=== PATIENT | female | born 1965 | race Caucasian/White ===

== ENCOUNTER → 2018-10-11 08:44 | Outpatient (CLI) | payer MEDICARE | END | disposition home or self-care (01) | LOC: D.NM 08:15 | PROVIDERS: ATTEND Orthopaedic Surgery | DX: M25.561 Pain in right knee (principal) ==

== ENCOUNTER → 2018-10-31 12:03 | Outpatient (CLI) | payer MEDICARE ==
[2018-10-31 18:42] LABS: BASOPHILS 0.9 % (0-2); EOSINOPHILS 0.9 % (0-7); HEMATOCRIT 36.6 % (36.0-48.0); HEMOGLOBIN 12.4 g/dL (12-16); IMMATURE GRANULOCYTES 0.3 % (0-5); LYMPHOCYTES 39.3 % (15-50); MCH 32.8 pg (26.0-34.0); MCHC 33.9 g/dL (31.0-37.0); MCV 96.8 fL (80.0-100.0); MEAN PLATELET VOLUME 8.9 fL (7.4-10.4); MONOCYTES 4.7 % (2-11); NEUTROPHILS 53.9 % (40-80); PLATELET COUNT 320 10x3/uL (130-400); RBC 3.78 10x6/uL (4.00-5.40); RDW 12.7 % (11.5-14.5); WBC 6.8 10x3/uL (4.8-10.8)
[2018-10-31 19:42] LABS: PROTEIN - BODY FLUID 11.2 G/DL
[2018-10-31 19:51] LABS: CRYSTAL IDENTIFICATION NO CRYSTALS SEEN (NONE SEEN)
[2018-10-31 19:53] LABS: ERYTHROCYTE SEDIMENTATION RATE 10 mm/hr (0-30)
== END | disposition home or self-care (01) ==
LOC: D.LABREF 12:03
PROVIDERS: ATTEND Orthopaedic Surgery
DX: M25.561 Pain in right knee (principal)

== ENCOUNTER → 2018-11-07 12:41 | Outpatient (CLI) | payer MEDICARE | END | disposition home or self-care (01) | LOC: D.LABREF 12:41 | PROVIDERS: ATTEND Orthopaedic Surgery | DX: M17.11 Unilateral primary osteoarthritis, right knee (principal); Z11.8 Encounter for screening for other infectious and parasitic diseases ==

== ENCOUNTER 2018-12-02 14:55 | Inpatient (IN) | payer MEDICARE ==
[~2018-12-02] VITALS: Ht 157.5 cm; Wt 85.5 kg
[2018-12-06] MEDS ORDERED: OMEPRAZOLE20 M1 PO (13:52)
[2018-12-06] MEDS ORDERED: MIRAPEX1 MG PO (13:53)
[2018-12-06] MEDS ORDERED: BACLOFEN20 M1 PO (13:54)
[2018-12-06] MEDS ORDERED: AMITRIPTYLINE100 MG PO (13:54)
[2018-12-06] MEDS ORDERED: LEXAPRO20 MG PO (13:54)
[2018-12-06] MEDS ORDERED: REQUIP1 MG PO (14:20)
[2018-12-06] MEDS ORDERED: HYDROCODON-ACE1 EA10 PO (14:21)
[2018-12-06] MEDS ORDERED: LISINOPRIL20 MG PO (14:21)
[2018-12-06] MEDS ORDERED: GABAPENTIN100 MG PO (14:22)
[2018-12-06] MEDS ORDERED: HYDROXYZINE HCL50 MG PO (14:40)
[2018-12-07 10:55] LABS: APPEARANCE CLEAR (CLEAR); BILIRUBIN NEGATIVE (NEGATIVE); COLOR YELLOW (YELLOW); GLUCOSE NEGATIVE (NEGATIVE); KETONE NEGATIVE (NEGATIVE); NITRITE NEGATIVE (NEGATIVE); PROTEIN NEGATIVE (NEGATIVE); SPECIFIC GRAVITY 1.015 (1.005-1.020); UROBILINOGEN NORMAL (NORMAL)
[2018-12-07 11:15] LABS: BASOPHILS 0.6 % (0-2); EOSINOPHILS 1.4 % (0-7); HEMATOCRIT 37.6 % (36.0-48.0); HEMOGLOBIN 12.9 g/dL (12-16); MCH 32.7 pg (26.0-34.0); MCHC 34.3 g/dL (31.0-37.0); MCV 95.2 fL (80.0-100.0); MEAN PLATELET VOLUME 8.1 fL (7.4-10.4); MONOCYTES 5.5 % (2-11); NEUTROPHILS 49.5 % (40-80); PLATELET COUNT 298 10x3/uL (130-400); RBC 3.95 10x6/uL (4.00-5.40); RDW 12.6 % (11.5-14.5); WBC 6.3 10x3/uL (4.8-10.8)
[2018-12-07 11:38] LABS: APTT 34.2 SECONDS (22.8-39.4); INR 0.96 (0.85-1.17); PROTIME 12.3 SECONDS (11.6-15.0)
[2018-12-07 11:40] LABS: CALC OSMOLALITY 283 mosm/kg (275-300); CALCIUM 8.9 mg/dL (8.5-10.1); CARBON DIOXIDE 30.3 mmol/L (21.0-32.0); CHLORIDE - SERUM 104 mmol/L (98-107); CREATININE - SERUM 0.6 mg/dL (0.6-1.3); GLUCOSE 77 mg/dL (74-106); POTASSIUM - SERUM 4.6 mmol/L (3.5-5.1); SODIUM 142 mmol/L (136-145); UREA NITROGEN 18 mg/dL (7-18); eGFR NON AFRICAN AMERICAN > 90 mL/min (90-120)
[2018-12-13] MEDS ORDERED: ZYRTEC10 MG PO (11:26)
[2018-12-13 11:28] VITALS: BP 139/88; BMI 33.9
[2018-12-13 19:22] VITALS: BP 113/75
[2018-12-13] MEDS ORDERED: NEURONTIN 300300 MG PO (23:10)
[2018-12-13 23:20] VITALS: BP 113/75; Ht 157.5 cm; Wt 85.5 kg
[2018-12-14] VITALS: BP 116/75
[2018-12-14 04:00] VITALS: BP 91/62
[2018-12-14 06:04] LABS: HEMATOCRIT 29.8 % (36.0-48.0); MCH 32.3 pg (26.0-34.0); MCHC 33.6 g/dL (31.0-37.0); MCV 96.1 fL (80.0-100.0); MEAN PLATELET VOLUME 8.2 fL (7.4-10.4); RBC 3.1 10x6/uL (4.00-5.40); RDW 12.7 % (11.5-14.5); WBC 6.8 10x3/uL (4.8-10.8)
--- NOTE | 2018-12-14 06:58 | OP ---
PATIENT NAME: ROMEL MCCURDY MEDICAL RECORD: [id number] :63 LOCATION:[id number] ADMISSION DATE:12/13/18 SURGEON: KIRILL LEDESMA DO DATE OF OPERATION: 12/13/2018 PROCEDURE PERFORMED: Right revision total knee arthroplasty. PREOPERATIVE DIAGNOSIS: Loosening of total knee arthroplasty. POSTOPERATIVE DIAGNOSIS: Loosening of total knee arthroplasty. INDICATIONS: Ms. Mccurdy is a 53-year-old female who had a total knee, put in a few years ago. She said it did not feel quite right from the beginning. She said would have pain when she first stood up and then would settle in and she will feel better. She was worked up. She had a bone scan, which demonstrated loosening versus infection. I aspirated her knee as well as freddie an ESR, CRP, white blood cell count. Those were all normal. The cultures did not grow any bacteria from the knee aspirate and white blood count was not more than 1100. The patient was informed that we could revise this. She would be at increased risk for infection due to being a revision, need for further surgery, fracture, blood clots, and even and implant failure. She was okay with that risk and signed the consent for the procedure. SURGEON: Kirill Ledesma DO DESCRIPTION OF PROCEDURE: The patient was given a block by anesthesia in the preoperative area, taken to the operative suite, laid in supine position, given 2 grams Ancef and 80 mg gentamicin preoperatively. The right lower extremity was prepped and draped in sterile fashion. A timeout was performed, was arranged correct side, site, patient and procedure. The incision was then marked out and covered with Ioban and the Esmarch was used to exsanguinate the right lower extremity, tourniquet was inflated 315 mmHg, was up for 100 minutes. Once the tourniquet was inflated, incision began and careful dissection was made down to the capsule. A fresh 10 blade was used to do a medial parapatellar approach through the capsule and some of the synovium was removed at that time due to thickening. Once the knee was exposed, the poly was popped out and went over the femur, it came off fairly easily with just loosening up a little with osteotomes as it was likely loose once the femur came off. Tibia exposure was done and the same procedure with osteotomes loosened up around the edges and then the tibia came out. The cement was then removed off the tibia, as there is not much on the prosthetic, but mostly on the bone. This was removed and then the tibia was prepared and cut through an intramedullary guide. Once the tibia had been cut, distal femur was first reaming up to a 12 on the femur to 120 and then the distal femur cut was freshened up. Once the distal femur was cut, we trialled a 57/5 with 5 mm augments on the distal femur. This fit very well and then was fitted in the tibia. We went up with the tibial tray to 18 poly having it fit well and ended up doing a 5-mm augments on the tibia to the final implant. Once we were satisfied with that, the tibia was prepared again with a 63 and was satisfied with rotation; also the tibia was drilled and cut and punched for the cruciate stem. Any cement that was left was removed at that time, then the implants were assembled with 5 mm augments on the tibia and the distal femur. Cement was placed on them in the tibia and the femur and then the prosthesis were impacted into place, first the tibia. All excess cement was removed. Then, the femur and excess cement was removed from that and then a 12 poly was put in between and brought to extension. The tourniquet was let down OPERATIVE REPORT [id number] ROMEL MCCURDY at that time. The patient did receive a gram of TXA prior to the incision and at that time, the tourniquet was let down. Any bleeding was coagulated at that time with the Aquamantys, and once the cement dried, we trialled the 12 seemed to fit very well. We did end up doing a 12 constrained PS tibia. The knee was then irrigated with Bactisure and then irrigated with 1.5 liters of normal saline after that. Then, Surgicel powder and vancomycin and tobramycin powder were placed in the knee and the gutters and the knee was flexed up. She is very stable in flexion and extension with the prosthesis in and the locking mechanism putting on the tibial tray and the tibial poly. Once that was performed, the capsule was closed with #2 Ethibond in a kemjlz-mf-gpanx fashion and the capsule was irrigated and the skin was closed with 2-0 Vicryl in an inverted interrupted fashion. ZipLine was placed on the knee. The patient was then dressed with Adaptic, 4 x 4s, ABD, Webril, and Rashard wrap and a GALEN stocking placed up to the knee. She was awakened and taken to recovery in stable condition. Blood loss was approximately 200 mL. COMPLICATIONS: None. TRANSINT:[id number] Voice Confirmation ID: [id number] DOCUMENT ID: [id number] KIRILL LEDESMA DO at 0658 CC: [id number] DICTATION DATE: 12/13/18 180 OPTICIAN: 12/13/18 2105 ADM IN [facility] [address] [id number]
[2018-12-14 09:00] VITALS: BP 98/57
--- NOTE | 2018-12-14 10:10 | NUR ---
MORNING ASSESSMENT COMPELTE. SEE ASSESSMENT FLOWSHEET FOR FURTHER DETAILS. PT LYING IN BED AAO X4 TO PERSON, PLACE, TIME, AND SITUATION. DENEIS NEEDS AT THSI TIME.C L IN REACH. SIDE RAILS UP X3 FOR PT SAEFTY. BED IN LOWEST POSITION.
[2018-12-14 11:22] LABS: ALKALINE PHOSPHATASE 85 U/L (46-116); ALT (SGPT) 32 U/L (10-68); CALC OSMOLALITY 280 mosm/kg (275-300); CALCIUM 7.8 mg/dL (8.5-10.1); CARBON DIOXIDE 29.9 mmol/L (21.0-32.0); CHLORIDE - SERUM 107 mmol/L (98-107); CREATININE - SERUM 0.6 mg/dL (0.6-1.3); GLUCOSE 81 mg/dL (74-106); POTASSIUM - SERUM 4.4 mmol/L (3.5-5.1); PROTEIN - SERUM 5.3 g/dL (6.4-8.2); SODIUM 141 mmol/L (136-145); UREA NITROGEN 16 mg/dL (7-18); eGFR NON AFRICAN AMERICAN > 90 mL/min (90-120)
[2018-12-14 13:14] VITALS: BP 107/58
[2018-12-14 16:46] VITALS: BP 111/62
[2018-12-14 20:00] VITALS: BP 125/63
--- NOTE | 2018-12-14 20:00 | NUR ---
ALERT RESTING IN BED CPM IN USE, BILLIE WRAP DRESSING INTACT TO RIGHT KNEE, DENIES PAIN AT THIS TIME, CALL LIGHT IN REACH
[2018-12-15] VITALS: BP 133/79
[2018-12-15 04:00] VITALS: BP 152/79
[2018-12-15] MEDS ORDERED: HYDROXYZINE HCL50 MG PO (06:53)
[2018-12-15] MEDS ORDERED: ELIQUIS2.5 MG PO (06:53)
[2018-12-15] MEDS ORDERED: OXYCODONE HCL5 M1 PO (06:54)
[2018-12-15] MEDS ORDERED: CIPRO500 MG PO (06:55)
[2018-12-15 07:04] LABS: BASOPHILS 0.1 % (0-2); EOSINOPHILS 1.2 % (0-7); HEMATOCRIT 30.1 % (36.0-48.0); HEMOGLOBIN 10.4 g/dL (12-16); IMMATURE GRANULOCYTES 0.2 % (0-5); MCH 32.6 pg (26.0-34.0); MCHC 34.6 g/dL (31.0-37.0); MCV 94.4 fL (80.0-100.0); MONOCYTES 6.9 % (2-11); NEUTROPHILS 73.6 % (40-80); PLATELET COUNT 204 10x3/uL (130-400); RBC 3.19 10x6/uL (4.00-5.40); RDW 12.2 % (11.5-14.5); WBC 9.2 10x3/uL (4.8-10.8)
[2018-12-15 07:22] LABS: ALBUMIN 2.9 g/dL (3.4-5.0); ALKALINE PHOSPHATASE 82 U/L (46-116); ALT (SGPT) 24 U/L (10-68); BILIRUBIN - TOTAL 0.64 mg/dL (0.2-1.3); CALC OSMOLALITY 267 mosm/kg (275-300); CALCIUM 8.1 mg/dL (8.5-10.1); CARBON DIOXIDE 23.1 mmol/L (21.0-32.0); CHLORIDE - SERUM 100 mmol/L (98-107); CREATININE - SERUM 0.5 mg/dL (0.6-1.3); GLUCOSE 94 mg/dL (74-106); POTASSIUM - SERUM 3.6 mmol/L (3.5-5.1); PROTEIN - SERUM 6.3 g/dL (6.4-8.2); SODIUM 135 mmol/L (136-145); UREA NITROGEN 8 mg/dL (7-18); eGFR NON AFRICAN AMERICAN > 90 mL/min (90-120)
--- NOTE | 2018-12-15 08:44 | NUR ---
ALERT AND ORIENTED X 3. LUNGS CLEAR BILATERALLY IN ALL WOOD. HEART SOUNDS S1 AND S2 HEARD IN ALL WOOD. BOWEL SOUNDS ACTIVE X 4. PRN PAIN MEDICATION GIVEN FOR PAIN 03/25. DENIES FURTHER NEEDS. SKIN INTACT WITHOUT REDNESS. WILL CONTINUE TO MONITOR.
[2018-12-15 09:20] VITALS: BP 154/76
--- NOTE | 2018-12-15 10:11 | NUR ---
DRSG CHANGED TO RIGHT KNEE PER MD ORDER. INCISION C/D/I WITHOUT REDNESS. 4 EXTRA DRESSINGS AND EXTRA BILLIE WRAP PROVIDED TO PATIENT PER MD ORDER.
[2018-12-15 11:00] VITALS: BP 122/54
--- NOTE | 2018-12-15 11:05 | NUR ---
PATIENT WITH FEVER 101. N/O DR LEDESMA TO GIVE TYLENOL AND POSTPONE DISCHARGE.
--- NOTE | 2018-12-15 11:12 | NUR ---
Patient with 101.1 temp at 0920, Dr Carmen made aware and discharge cancelled.
--- NOTE | 2018-12-15 11:20 | MORECARE ---
CASE MANAGEMENT DISCHARGE SUMMARY PATIENT: ROMEL MCCURDY UNIT: [id number] ADM DATE: 12/13/18 AGE: 53 : 63 SEX: F ROOM/BED: D.2210 AUTHOR: JANICE BROWN PHYSICIAN: REFERRING PHYSICIAN: KIRILL LEDESMA DO DATE OF SERVICE: 12/15/18 Discharge Plan Patient Name: ROMEL MCCURDY Facility: [facility]:[place] : 1965 Planned Disposition: Home or Self Care Anticipated Discharge Date: Discharge Date: Expected LOS: Initial Reviewer: [email or web address] Initial Review Date: 12/13/2018 Generated: 12/15/18 12:20 pm DCPIA - Discharge Planning Initial Assessment Updated by [email or web address]: Maria Antonia Sumner on 12/15/18 11:18 am * Is the patient Alert and Oriented? Yes * How many steps to enter\exit or inside your home? flight * PCP [place] ([facility]) * [facility] * Preadmission Environment Home with Family * ADLs Independent * Equipment Bedside Commode Rolling Walker * Other Equipment CPM Ice Machine * List name and contact numbers for known caregivers / representatives who currently or will assist patient after discharge: Kirill Mccurdy () [phone] * Verbal permission to speak to the caregivers and representatives has been obtained from the patient. N/A * Community resources currently utilized None * Additional services required to return to the preadmission environment? Yes * Can the patient safely return to the preadmission environment? Yes * Has this patient been hospitalized within the prior 30 days at any hospital? No External Providers External Provider: Kenn PT Next Contact Date: Service Request Date: Service Type: Resolution: Reviewer: Comments: Patient Name: ROMEL MCCURDY Page [id number] at 1120 All edits/amendments must be made on the electronic document DICTATION DATE: 12/15/18 1120 MANAGER WEB: TEE 12/15/18 1120 RPT#: [id number] DC DATE: STATUS: ADM IN [facility] [address] [place] [address] END OF REPORT
--- NOTE | 2018-12-15 11:28 | MORECARE ---
CASE MANAGEMENT DISCHARGE SUMMARY PATIENT: ROMEL MCCURDY UNIT: [id number] ADM DATE: 12/13/18 AGE: 53 : 63 SEX: F ROOM/BED: D.2210 AUTHOR: JANICE BROWN PHYSICIAN: REFERRING PHYSICIAN: KIIRLL LEDESMA DO DATE OF SERVICE: 12/15/18 Discharge Plan Patient Name: ROMEL MCCURDY Facility: [facility]:[place] : 1965 Planned Disposition: Home or Self Care Anticipated Discharge Date: Discharge Date: Expected LOS: Initial Reviewer: [email or web address] Initial Review Date: 12/13/2018 Generated: 12/15/18 12:28 pm Comments DCP- Discharge Planning Updated by [email or web address]: Maria Antonia Sumner on 12/15/18 10:[address] Patient Name: ROMEL MCCURDY Admission Status: Elective Accout number: [id number] Admission Date: 12-13-2018 : 1965 Admission Diagnosis: Attending: KIRILL LEDESMA Current LOS: 2 Anticipated DC Date: Planned Disposition: Home or Self Care Primary Insurance: [employer] CHO[employer] PPO MCR ADVANT Discharge Planning Comments: CM met with patient to complete initial dc planning assessment. CM educated patient on the CM role and verbal consent given by patient to complete assessment. Patient lives at home with her where she is independent with her care. At discharge patient plans to return home and feels this is a safe discharge. 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 CM discussed availability of home health, rehab services, and medical equipment. She plans to do her OP PT at [facility], Her appointment has been made for 12/19/18 @ 10:30 am. I spoke with Rosa Elena at [facility]. She has a walker, BSC, CPM, Ice Machine that is delivered to her home that was set up by Dr Ledesma's office. Patient denied known discharge needs at this time. CM will continue to follow and will assist as needed with dc plans/needs. Blunger: Maria Antonia Sumner DCPIA - Discharge Planning Initial Assessment Updated by [email or web address]: Maria Antonia Sumner on 12/15/18 11:18 am * Is the patient Alert and Oriented? Yes * How many steps to enter\exit or inside your home? flight * PCP [place] ([facility]) * [facility] * Preadmission Environment Home with Family * ADLs Independent * Equipment Bedside Commode Rolling Walker * Other Equipment CPM Ice Machine * List name and contact numbers for known caregivers / representatives who currently or will assist patient after discharge: Kirill Mccurdy () [phone] * Verbal permission to speak to the caregivers and representatives has been obtained from the patient. N/A * Community resources currently utilized None * Additional services required to return to the preadmission environment? Yes * Can the patient safely return to the preadmission environment? Yes * Has this patient been hospitalized within the prior 30 days at any hospital? No Last DP export: 12/15/18 10:20 am Patient Name: ROMEL MCCURDY Page [id number] at 1128 All edits/amendments must be made on the electronic document DICTATION DATE: 12/15/181127 LOW VISION THERAPIST: TEE 12/15/18 112 RPT#: [id number] DC DATE: STATUS: ADM IN [facility] [address] [place] [address] END OF REPORT
--- NOTE | 2018-12-15 12:10 | NUR ---
TEMP 98.2 AFTER PRN TYLENOL.
--- NOTE | 2018-12-15 12:38 | NUR ---
RESTING IN BED. EDUCATION PROVIDED ON NEED FOR URINE SAMPLE. VERBALIZED UNDERSTANDING. HAT PLACED IN BSC. WILL CONTINUE TO MONITOR.
[2018-12-15 14:48] LABS: APPEARANCE CLEAR (CLEAR); BILIRUBIN NEGATIVE (NEGATIVE); COLOR YELLOW (YELLOW); GLUCOSE NEGATIVE (NEGATIVE); KETONE NEGATIVE (NEGATIVE); NITRITE NEGATIVE (NEGATIVE); PROTEIN NEGATIVE (NEGATIVE); SPECIFIC GRAVITY 1.005 (1.005-1.020); UROBILINOGEN NORMAL (NORMAL)
[2018-12-15 16:00] VITALS: BP 138/78
--- NOTE | 2018-12-15 16:40 | NUR ---
DISCHARGE INSTRUCTIONS COVERED WITH PT AND FAMILY MEMBER. PRINTED RX GIVEN TO PT. PT DENIES FURTHER QUESTIONS/CONCERNS AT THIS TIME. PIV TO LEFT FOREARM REMOVED WITH CATHETER TIP INTACT. DRESSING APPLIED. ALL DISCHARGE PAPERS SIGNED. PT DENIES FURTHER NEEDS.
== END 2018-12-15 17:18 | disposition home or self-care (01) | DRG 468 ==
LOC: D.MS 12-13 09:45 → D.SDCHOLD 12-13 09:45 → D.MS 12-13 18:58 → D.SDCHOLD 12-15 12:44 → D.MS 12-15 12:48
PROVIDERS: Family Medicine; ADMIT Orthopaedic Surgery; ATTEND Orthopaedic Surgery
PROC: 0SRC0J9 Replacement of Right Knee Joint with Synthetic Substitute, Cemented, Open Approach (ICD-10-PCS; 2018-12-13)
PROC: 0SPC0JZ Removal of Synthetic Substitute from Right Knee Joint, Open Approach (ICD-10-PCS; principal; 2018-12-13 11:45)
DX: T84.032A Mechanical loosening of internal right knee prosthetic joint, initial encounter (principal); I10 Essential (primary) hypertension; D64.9 Anemia, unspecified; M54.5 Low back pain; K44.9 Diaphragmatic hernia without obstruction or gangrene

== ENCOUNTER 2019-03-17 07:55 | Day surgery (SDC) | payer MEDICARE ==
[2019-03-16 15:09] LABS: HEMATOCRIT 31.2 % (36.0-48.0); MCH 31.5 pg (26.0-34.0); MCHC 35.3 g/dL (31.0-37.0); MCV 89.4 fL (80.0-100.0); MEAN PLATELET VOLUME 8.6 fL (7.4-10.4); RBC 3.49 10x6/uL (4.00-5.40); RDW 12.6 % (11.5-14.5); WBC 5.6 10x3/uL (4.8-10.8)
[~2019-03-17] VITALS: Ht 157.5 cm; Wt 76.7 kg
[~2019-03-17 07:55] MED LIST: AMITRIPTYLINE100 MG PO; BACLOFEN20 M1 PO; CIPRO500 MG PO; ELIQUIS2.5 MG PO; GABAPENTIN100 MG PO; HYDROCODON-ACE1 EA10; HYDROCODON-ACE1 EA10 PO; HYDROXYZINE HCL50 MG PO; LEXAPRO20 MG PO; LISINOPRIL20 MG PO; MIRAPEX1 MG PO; NEURONTIN 300300 MG PO; OMEPRAZOLE20 M1 PO; OXYCODONE HCL5 M1 PO; REQUIP1 MG PO; TRAZODONE HCL150 MG; ZYRTEC10 MG PO
[2019-03-17 08:25] VITALS: BP 143/62; Ht 157.5 cm; Wt 76.7 kg
[2019-03-17] MEDS ORDERED: HYDROXYZINE HCL50 MG PO (12:22)
[2019-03-17] MEDS ORDERED: PERCOCET 10-321 EAC1 PO (12:23)
--- NOTE | 2019-03-17 13:32 | OP ---
PATIENT NAME: ROMEL MCCURDY MEDICAL RECORD: [id number] :63 LOCATION:[facility] ADMISSION DATE: SURGEON: SEBASTIÁN LEDESMA DO DATE OF OPERATION: 03/17/2019 PROCEDURE PERFORMED: Revision left thumb CMC arthroplasty and trigger A1 maggie release on the left thumb. 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 INDICATIONS: Ms. Mccurdy is a 53-year-old female who had 2 thumb CMC arthroplasties in [place]. Her thumb ended up subluxing and she wanted something done about it. 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 She also had a A1 maggie trigger thumb on that same thumb. I injected it and it did not help. She wanted that fixed as well at the same time. I informed her of the risks including damage to nerves and vessels in the area, infection, bleeding and need for further surgery, loss of use of the thumb. She was okay with that and signed a consent. DESCRIPTION OF PROCEDURE: The patient received a block by anesthesia in the preoperative area, was taken to the operative suite, given TIVA and the left upper extremity was prepped and draped in sterile fashion. Timeout was performed, everyone was in agreement of the correct side, site, patient and procedure. Left upper extremity was then exsanguinated with an Esmarch and the tourniquet was inflated to 250 mmHg, was up for 28 minutes. The trigger release was done first. It was marked out over the A1 maggie of the thumb. Careful dissection was made down to it and it was released under direct visualization. The flexor tendon was then pulled out through the incision, ensuring it did not catch on anything. The attention was then drawn to the CMC arthroplasty revision. Using the old incision, I went through that and careful dissection was made down to the capsule itself of the CMC joint. This was opened up and the button from the previous suspension was removed and then a guidewire was placed into the radial side of the thumb and an anchor was placed in with the FiberTape. Then another guidewire was placed in the base of the second metacarpal. This was done under fluoroscopy and drilled over and then the thumb was held in retraction and adduction holding it in place and the anchor was placed with the suture tape in the second metacarpal base. This held very nicely and did not pull out and on x-ray, the thumb was in good cascade with the second metacarpal and did not sublux with pressure. The tourniquet was then let down. The excess suture was cut and any bleeding was coagulated with a pickup and a Bovie. The capsule was then closed with 2-0 Vicryl in a oxrpyu-sv-qoxaq fashion and then the skin was closed with 2-0 Vicryl in inverted interrupted fashion and 4-0 nylon ran on the incision on the CMC arthroplasty and then a horizontal mattress on the A1 maggie release. It was then dressed with Adaptic, 4 x 4s, cast padding and a thumb spica splint was placed on the thumb and secured in place with a 2-inch Rashard wrap. She was then awakened and taken to recovery in stable condition. Blood loss approximately 50 mL. COMPLICATIONS: None. TRANSINT:[id number] Voice Confirmation ID: [id number] DOCUMENT ID: [id number] OPERATIVE REPORT [id number] ROMEL MCCURDY,SEBASTIÁN Maldonado DO at 1332 CC: [id number] DICTATION DATE: 03/17/19 1238 FISH NET MAKER: 03/17/19 1251 REG [facility] [address] [place] [address]
--- NOTE | 2019-03-17 14:04 | NUR ---
1350: PT IV REMOVED, COVERED WITH BANDAGE, NO BLEEDING NOTED. DC INSTRUCTIONS AND NEW PRESCRIPTIONS GIVEN TO PT AND FAMILY PRESENT, ALL VOICED UNDERSTANDING. PT ASSISTED WITH DRESSING BY DAUGHTER. 1356: PT DC'D VIA WC TO HOME BY PERSONAL VEHICLE.
== END 2019-03-17 13:56 | disposition home or self-care (01) ==
LOC: D.OPS 07:55 → D.PAN 09:30 → D.OPS 09:30
PROVIDERS: ATTEND Orthopaedic Surgery
DX: M65.312 Trigger thumb, left thumb (principal); S63.042A Subluxation of carpometacarpal joint of left thumb, initial encounter; X58.XXXA Exposure to other specified factors, initial encounter; Z01.812 Encounter for preprocedural laboratory examination

== ENCOUNTER 2019-08-15 11:32 | Day surgery (SDC) | payer MEDICARE ==
[~2019-08-15] VITALS: Ht 157.5 cm; Wt 76.2 kg
[~2019-08-15 11:32] MED LIST changes: +CELEBREX200 MG PO; +EFFEXOR XR150 MG PO; +PERCOCET 10-321 EAC1 PO; +ZANAFLEX4 MG PO
[2019-08-15 12:09] LABS: HEMATOCRIT 39.5 % (36.0-48.0); HEMOGLOBIN 13.2 g/dL (12-16); MCH 32.4 pg (26.0-34.0); MCHC 33.4 g/dL (31.0-37.0); MCV 97.1 fL (80.0-100.0); MEAN PLATELET VOLUME 8.2 fL (7.4-10.4); RBC 4.07 10x6/uL (4.00-5.40); RDW 13.1 % (11.5-14.5); WBC 7.6 10x3/uL (4.8-10.8)
[2019-08-15 12:30] LABS: CALC OSMOLALITY 287 mosm/kg (275-300); CALCIUM 8.7 mg/dL (8.5-10.1); CARBON DIOXIDE 27.8 mmol/L (21.0-32.0); CHLORIDE - SERUM 105 mmol/L (98-107); CREATININE - SERUM 0.7 mg/dL (0.6-1.3); GLUCOSE 73 mg/dL (74-106); POTASSIUM - SERUM 4.2 mmol/L (3.5-5.1); SODIUM 144 mmol/L (136-145); UREA NITROGEN 18 mg/dL (7-18); eGFR NON AFRICAN AMERICAN > 90 mL/min (90-120)
[2019-08-15 13:22] VITALS: BP 152/87; Ht 157.5 cm; Wt 76.2 kg
[2019-08-15] MEDS ORDERED: HYDROXYZINE HCL50 MG PO (16:16)
[2019-08-15] MEDS ORDERED: PERCOCET 10-321 EAC1 PO (16:16)
--- NOTE | 2019-08-16 11:07 | OP ---
PATIENT NAME: ROMEL MCCURDY MEDICAL RECORD: [id number] :63 LOCATION:[facility] ADMISSION DATE: SURGEON: SEBASTIÁN LEDESMA DO DATE OF OPERATION: 08/15/2019 PROCEDURE PERFORMED: Left thumb revision CMC arthroplasty. PREOPERATIVE DIAGNOSIS: Failed CMC arthroplasty, left thumb. POSTOPERATIVE DIAGNOSIS: Failed CMC arthroplasty, left thumb. INDICATIONS: Ms. Mccurdy is a 54-year-old female who had this severe fourth thumb CMC arthritis. She had an anchovy technique done first and then a suspension, not failed, that was done in [place]. 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 I informed her of the risks including infection, bleeding, damage to nerves and vessels in the area, need for further surgery, failure of this and continued pain and blood clots and even . She signed the consent. SURGEON: Sebastián Ledesma DO DESCRIPTION OF THE PROCEDURE: The patient received the block per anesthesia in the preoperative area and she was taken to the operative suite and laid in supine position, given general anesthetic and LMA was placed. The left upper extremity was then prepped and draped in sterile fashion. A timeout was performed and everyone was in agreement with the correct side, site, patient, and procedure. She received vancomycin prior to the incision. We then exsanguinated the left upper extremity with an Esmarch and tourniquet was inflated to 250 mmHg up to 23 minutes. We then began by dissecting down to the thumb metacarpal at the base and then I exposed the second metacarpal shaft. I then shot under fluoroscopy a guidewire for the TightRope from the thumb radial side to the ulnar side of the second metacarpal. While pulling traction on the thumb, so it would be lined up with the way we wanted it and then put the button, then pulled the FiberWire through with a button on it and then cut the other sutures and put the button on it and tied it into place. Once it was tied appropriately and at the appropriate spot, the extra sutures were cut. I stressed the thumb pressing proximally and it did not subside or sublux, it had a good space between the first and second metacarpals. We then put the tourniquet down and any bleeding was cleared with a pickup and Bovie. The small incision over the second metacarpal was closed with 4-0 Monocryl in a horizontal mattress fashion and then over the thumb with 2-0 Vicryl in inverted interrupted fashion and then 5-0 nylon in a running stitch. These were then dressed with Adaptic, 4 x 4s, and cast padding and she was placed in a thumb spica splint, awakened, and taken to the recovery in stable condition. BLOOD LOSS: Minimal. COMPLICATION: None. TRANSINT:[id number] Voice Confirmation ID: [id number] DOCUMENT ID: [id number] OPERATIVE REPORT [id number] ROMEL MCCURDY,SEBASTIÁN Maldonado DO at 1107 CC: [id number] DICTATION DATE: 08/15/19 1610 PASTRY BAKER: 08/16/[address] [facility] 08/15/[id number] [place] [address]
== END 2019-08-15 18:20 | disposition home or self-care (01) ==
LOC: D.OPS 11:32 → D.PAN 14:15 → D.OPS 18:20 → D.PAN 09-15 07:00 → D.OPS 09-15 07:00
PROVIDERS: Anesthesiology; ATTEND Orthopaedic Surgery
DX: T84.033A Mechanical loosening of internal left knee prosthetic joint, initial encounter (principal); M18.12 Unilateral primary osteoarthritis of first carpometacarpal joint, left hand; M79.642 Pain in left hand; M25.561 Pain in right knee

== ENCOUNTER 2019-10-17 07:53 | Day surgery (SDC) | payer OTHER ==
[~2019-10-17] VITALS: Ht 157.5 cm; Wt 76.8 kg
[~2019-10-17 07:53] MED LIST changes: +EFFEXOR XR75 MG PO
[2019-10-17 08:38] LABS: HEMATOCRIT 37.7 % (36.0-48.0); HEMOGLOBIN 12.8 g/dL (12-16); MCH 32.7 pg (26.0-34.0); MCV 96.4 fL (80.0-100.0); MEAN PLATELET VOLUME 8.3 fL (7.4-10.4); RBC 3.91 10x6/uL (4.00-5.40); RDW 12.5 % (11.5-14.5); WBC 7.4 10x3/uL (4.8-10.8)
[2019-10-17 08:44] VITALS: Ht 157.5 cm; Wt 76.8 kg
[2019-10-17] MEDS ORDERED: PERCOCET 10-321 EAC1 PO (10:28)
--- NOTE | 2019-10-17 11:36 | NUR ---
1135 MAU JACOB PROVIDED FOR PT.
--- NOTE | 2019-10-18 08:33 | OP ---
PATIENT NAME: ROMEL MCCURDY MEDICAL RECORD: [id number] :63 LOCATION:D.[facility] ADMISSION DATE: SURGEON: SEBASTIÁN LEEDSMA DO DATE OF OPERATION: 10/17/2019 PROCEDURE PERFORMED: Excision of ganglion, right wrist. PREOPERATIVE DIAGNOSIS: Ganglion cyst, right wrist intertendinous. POSTOPERATIVE DIAGNOSIS: Ganglion cyst, right wrist intertendinous. INDICATIONS: Ms. Mccurdy is a 54-year-old female well known to me, who has had a ganglion cyst for quite some time. She has had to remove once quite a few years in the past and they have returned. She is tired of it, bumping on things and it was quite painful with hand movements. Informed we can take it out and that there was a good chance of recurrence. She was aware of that and was aware of the risks including infection, bleeding, damage to tendons in the area vessels and nerves and continued pain, need for further surgery, and she signed the consent. SURGEON: Sebastián Ledesma DO DESCRIPTION OF PROCEDURE: The patient was given a block by anesthesia in the preoperative taken to the operative suite, laid in supine position, given some light sedation and the right upper extremity was prepped and draped in sterile fashion. Timeout was performed. Everyone was in agreeance with the correct side, site, patient, and procedure. We then put a tourniquet on the right upper extremity sterilely and exsanguinated the right upper extremity with an Esmarch. Tourniquet was inflated to 250 mmHg and was up for 14 minutes. We then began with an incision over the ganglion and dissected down to it. It was in the intratendinous and the extensor indices proprius EIP tendon. This was dissected out and the tendon was somewhat frayed, but it was not ruptured, and once we got all the ganglion out, the tourniquet was let down and bleeding was coagulated. The site was closed with 5-0 Monocryl in inverted interrupted fashion. Steri-Strips placed on the skin. She was injected with approximately 8 mL of 0.25% Marcaine without epinephrine around the area prior to letting the tourniquet down and then she was dressed with Adaptic, 4 x 4s, Kerlix and Coban lightly wrap. She was then taken to recovery in stable condition. ESTIMATED BLOOD LOSS: Minimal. TRANSINT:[id number] Voice Confirmation ID: [id number] DOCUMENT ID: [id number] SEBASTIÁN LEDESMA DO at 0833 CC: [id number] DICTATION DATE: 10/17/19 1059 EARLY CHILDHOOD TEACHER ASSISTANT: 10/17/19 1937 [facility] 10/17/19 [facility] [address] [id number]
== END 2019-10-17 12:15 | disposition home or self-care (01) ==
LOC: D.OPS 07:53 → D.PAN 10:00 → D.OPS 11:30 → D.PAN 11:30 → D.OPS 12:15
PROVIDERS: Anesthesiology; ATTEND Orthopaedic Surgery
DX: M67.431 Ganglion, right wrist (principal); K21.9 Gastro-esophageal reflux disease without esophagitis; J45.909 Unspecified asthma, uncomplicated; Z96.651 Presence of right artificial knee joint; M18.12 Unilateral primary osteoarthritis of first carpometacarpal joint, left hand

== ENCOUNTER → 2019-12-08 09:53 | Outpatient (CLI) | payer OTHER ==
[2019-10-17 08:44] VITALS: BMI 31.0
== END | disposition home or self-care (01) ==
LOC: D.CT 09:30
PROVIDERS: ATTEND Orthopaedic Surgery
DX: M25.551 Pain in right hip (principal); M25.552 Pain in left hip

== ENCOUNTER 2020-05-31 05:40 | Day surgery (SDC) | payer OTHER ==
[~2020-05-31] VITALS: Ht 157.5 cm; Wt 76.2 kg
[~2020-05-31 05:40] MED LIST changes: +FEXOFENADINE HC60 MG PO; +PHENERGAN25 M1 PO; +ZOFRAN4 MG PO
[2020-05-31 06:24] LABS: HEMATOCRIT 38.9 % (36.0-48.0); MCH 32.9 pg (26.0-34.0); MCHC 33.4 g/dL (31.0-37.0); MCV 98.5 fL (80.0-100.0); MEAN PLATELET VOLUME 8.1 fL (7.4-10.4); RBC 3.95 10x6/uL (4.00-5.40); RDW 12.8 % (11.5-14.5); WBC 9.7 10x3/uL (4.8-10.8)
[2020-05-31 06:34] VITALS: BP 143/89; Ht 157.5 cm; Wt 76.2 kg
--- NOTE | 2020-05-31 13:54 | NUR ---
0925 IV D/C'D WITH CANNULA INTACT, PRESSURE HELD AND DRSG PLACED. DISCHARGE INSTRUCTIONS GIVEN AND PT VERBALIZED AN UNDERSTANDING. DISCHARGED HOME IN STABLE CONDITION AND WITHOUT COMPLAINT
--- NOTE | 2020-05-31 17:44 | OP ---
PATIENT NAME: ROMEL MCCURDY MEDICAL RECORD: [id number] :63 LOCATION:D[facility] ADMISSION DATE: SURGEON: SEBASTIÁN LEDESMA DO DATE OF OPERATION: 05/31/2020 PROCEDURE PERFORMED: Open revision right carpal tunnel release. PREOPERATIVE DIAGNOSIS: Recurrent right carpal tunnel syndrome. POSTOPERATIVE DIAGNOSIS: Recurrent right carpal tunnel syndrome. INDICATIONS: Ms. Mccurdy is a well-known patient to me. She is a 55-year-old female who has had her hand going to sleep just like she had carpal tunnel 15 years ago. She had an open carpal tunnel procedure done. She had a nerve conduction study showing severe compression of the median nerve at the wrist. I told her we could open it up and do a revision, release the nerve to hopefully give her some relief. She was aware of the risks including damage to the median nerve, continued pain, numbness, tingling, infection and bleeding. She signed the consent. SURGEON: Sebastián Ledesma DO DESCRIPTION OF PROCEDURE: The patient was taken to the operative suite, laid in supine position. Given general anesthetic and LMA was placed. She was given 900 mg of clindamycin due to her allergy. The right upper extremity was then prepped and draped in sterile fashion. Timeout was performed. Everyone was in agreeance with the correct side, site, patient, and the procedure. I then began by exsanguinating the right upper extremity with the Esmarch tourniquet was inflated to 250 mmHg, it was up for 9 minutes. I then began by making an incision in the palm in line with the fourth ray and through the old incision with a 15-blade scalpel, made careful dissection down to the transverse carpal ligament. There was extensive scar tissue there. I removed all of that and then used a nasal speculum to open up proximally and distally to ensure there was full release of the nerve and it was. I then made sure the nerve was well released. The tourniquet was then let down. Any bleeding was coagulated with a bipolar. I then injected the site with 10 mL of 0.25% Marcaine with epinephrine. I then closed it with 4-0 nylon in a horizontal mattress fashion. She was then dressed with Adaptic, 4 x 4, cast padding and Coban was lightly wrapped on the wrist. She was then awakened and taken to recovery in stable condition. BLOOD LOSS: Minimal. COMPLICATIONS: None. TRANSINT:[id number] Voice Confirmation ID: [id number] DOCUMENT ID: [id number] OPERATIVE REPORT [id number] ROMEL MCCURDY,SEBASTIÁN Maldonado DO at 1744 CC: [id number] DICTATION DATE: 05/31/20918 CONFERENCE ASSISTANT: 05/31/20 1531 [facility] 05/31/20 [id number] [place] [address]
== END 2020-05-31 09:30 | disposition home or self-care (01) ==
LOC: D.OPS 05:40 → D.PAN 08:45 → D.OPS 09:30
PROVIDERS: Anesthesiology; ATTEND Orthopaedic Surgery
DX: G56.01 Carpal tunnel syndrome, right upper limb (principal); I10 Essential (primary) hypertension

== ENCOUNTER 2020-11-27 05:05 | Day surgery (SDC) | payer MEDICARE ==
[2020-11-22 12:59] LABS: HEMATOCRIT 35.6 % (36.0-48.0); HEMOGLOBIN 11.9 g/dL (12-16); MCH 34.3 pg (26.0-34.0); MCHC 33.4 g/dL (31.0-37.0); MCV 102.6 fL (80.0-100.0); RBC 3.47 10x6/uL (4.00-5.40); RDW 12.5 % (11.5-14.5); WBC 8.2 10x3/uL (4.8-10.8)
[~2020-11-27] VITALS: Ht 157.5 cm; Wt 80.3 kg
[~2020-11-27 05:05] MED LIST changes: +ATIVAN1 MG PO; +FLUTICASONE PRO16 GM NASAL; +KENALOG-4040 MG/ML IM; +PAMELOR10 MG PO; +PROPRANOLOL HCL20 MG PO; +PROTONIX40 MG PO; +TORADOL10 MG PO
[2020-11-27 05:49] VITALS: BP 133/80; Ht 157.5 cm; Wt 80.3 kg
--- NOTE | 2020-11-27 08:45 | NUR ---
DISCHARGE INSTRUCTIONS REVIEWED WITH PT AND COPY PROVIDED. PT VOICED UNDERSTANDING OF ALL.
--- NOTE | 2020-11-27 09:05 | NUR ---
PT REQUESTED AN RX FOR TORADOL. DR LEDESMA AT NURSE'S STATION AND NOTIFIED. STATES HE WILL SEND RX TO PT'S PHARMACY. PT NOTIFIED.
[2020-11-27] MEDS ORDERED: TORADOL10 MG PO (09:09)
--- NOTE | 2020-11-27 09:21 | NUR ---
IV DC'D WITH CATH TIP INTACT. PT UP GETTING DRESSED FOR DISCHARGE HOME.
--- NOTE | 2020-11-27 09:36 | NUR ---
DISCHARGED VIA W/C, ACCOMPANIED BY [facility], TO [facility] WITH SPOUSE DRIVING. ALL BELONGINGS WITH PT/SPOUSE.
--- NOTE | 2020-11-27 12:32 | OP ---
PATIENT NAME: ROMEL MCCURDY MEDICAL RECORD: [id number] :63 LOCATION:[facility] ADMISSION DATE: SURGEON: KIRILL LEDESMA DO DATE OF OPERATION: 11/27/2020 PROCEDURE PERFORMED: Removal of hardware to the left hand and thumb. PREOPERATIVE DIAGNOSIS: Painful hardware, left thumb. POSTOPERATIVE DIAGNOSIS: Painful hardware, left thumb. INDICATION: Ms. Mccurdy is a 55-year-old female who has had a thumb CMC arthroplasty times 4 I believe. She has gotten to a point where her thumb is just locked and she could move it. I told her the best option would be just to take the hardware out and see what happens. She should get more motion back. She is okay with that and aware of the risks including infection, bleeding, damage to nerve or vessel, need for further surgery, continued pain, subluxation of the thumb, and loss of motion of the thumb. She is okay with that and signed the consent. SURGEON: Kirill Ledesma DO DESCRIPTION OF PROCEDURE: The patient was taken to the operative suite, laid in supine position, given general anesthetic, a gram of vancomycin, sedated and LMA was placed. The left upper extremity was prepped and draped in sterile fashion. A timeout was performed and everyone was in agreement with correct side, site, patient and procedure. I then made an incision over the old prior incisions over the second and first metacarpals. I made careful dissection down to the buttons. She had 2 over the second metacarpal, one over the thumb metacarpal. I removed those and x-rays were taken to ensure that there was nothing left in there and there was not. Tourniquet was then let down. Her left upper extremity was exsanguinated prior to starting. The tourniquet was inflated to 250 mmHg, was up for 7 minutes. Jarett Siegel, certified surgical first line production supervisor, then closed the sites with 4-0 nylon in a horizontal mattress fashion. She was wrapped with a soft dressing and awakened and taken to recovery in stable condition. BLOOD LOSS: Minimal. COMPLICATIONS: None. TRANSINT:[id number] Voice Confirmation ID: [id number] DOCUMENT ID: [id number] KIRILL LEDESMA DO at 1232 CC: [id number] DICTATION DATE: 11/27/20 0817 LANDSCAPE DESIGNER: 11/27/20 1219 [facility] 11/27/20 [id number] [place] [id number]
== END 2020-11-27 09:36 | disposition home or self-care (01) ==
LOC: D.OPS 05:05
PROVIDERS: Anesthesiology; ATTEND Orthopaedic Surgery
DX: T84.84XA Pain due to internal orthopedic prosthetic devices, implants and grafts, initial encounter (principal); M25.542 Pain in joints of left hand; M18.12 Unilateral primary osteoarthritis of first carpometacarpal joint, left hand

== ENCOUNTER → 2020-12-19 08:33 | Outpatient (CLI) | payer MEDICARE ==
[2020-11-27 05:49] VITALS: BMI 32.4
== END | disposition home or self-care (01) ==
LOC: D.MRI 08:33
PROVIDERS: ATTEND Pain Medicine Interventional Pain Medicine
DX: R20.0 Anesthesia of skin (principal); M50.30 Other cervical disc degeneration, unspecified cervical region; G43.009 Migraine without aura, not intractable, without status migrainosus; M54.17 Radiculopathy, lumbosacral region